=== PATIENT | female | born 2005 | race Two or more races ===

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

== ENCOUNTER 2025-06-19 07:54 | Emergency (ER) | payer OTHER ==
[~2025-06-19] VITALS: Ht 152.4 cm; Wt 41.7 kg
[2025-06-19] MEDS ORDERED: FAMOTIDINE/PF 20 MG/2 ML VIAL IV STA (09:15)
[2025-06-19] MEDS ORDERED: ONDANSETRON HCL 2 MG/ML VIAL IV STA (09:15)
[2025-06-19] MEDS ORDERED: 0.9 % SODIUM CHLORIDE 1,000 ML IV SCH ×2 (09:30)
[2025-06-19] MEDS ORDERED: ONDANSETRON HCL 2 MG/ML VIAL ONE (09:48)
[2025-06-19] MEDS ORDERED: FAMOTIDINE/PF 20 MG/2 ML VIAL ONE (09:48)
[2025-06-19 10:19] LABS: BASO % 0.2 % (0.1-1.2); EOS # 0.02 (0.04-0.54); EOS % 0.1 % (0.7-7.0); LYMPH # 1.08 (1.18-3.74); LYMPH % 6.6 % (19.3-53.1); MEAN PLATELET VOLUME 10.70 fl (9.4-12.4); MONO # 1.10 (0.24-0.82); MONO % 6.7 % (4.7-12.5); NEUT # 14.11 (1.56-6.13); NEUT % 86.0 % (34.0-71.1); RED CELL DISTRIBUTION WIDTH 12.9 % (11.6-14.4)
[2025-06-19 10:52] LABS: COVID-19 AG NEGATIVE (NEGATIVE)
[2025-06-19 10:53] LABS: ALT/SGPT 16 U/L (12-78); AST/SGOT 10 U/L (15-37); BILIRUBIN TOTAL 0.29 mg/dL (0.3-1.2); BUN CREA RATIO 23 (7.0-25.0); CREATININE SERUM 0.66 mg/dL (0.55-1.02); GFR 114.18; GLOBULINA 4.2 G/DL (2.4-3.5); GLUCOSE FASTING 102 mg/dL (65-100); OSMOLALITY SERUM 280 MOSM/KG (275-295)
[2025-06-19 13:40] LABS: URINE APPEARANCE Clear; URINE BILIRRUBIN Negative (NEGATIVE); URINE BLOOD NHT; URINE COLOR Yellow; URINE GLUCOSE Negative (NEGATIVE); URINE KETONE Negative (NEGATIVE); URINE LEUKOCYTE Small; URINE NITRATE Negative; URINE PROTEIN Trace (NEGATIVE); URINE UROBILINOGEN 0.2 E.U./dl
[2025-06-19 13:44] LABS: URINE BACTERIA 947.1 uL (0.0-1933); URINE EPITHELIAL CELLS 30.0 uL (0.0-38.8); URINE RBC 9.4 uL (0.0-20.8); URINE WBC 34.0 uL (0.0-23.2)
[2025-06-19 13:46] LABS: URINE CAST 0.14 uL (0.0-1.40)
[2025-06-19] MEDS ORDERED: CEFTRIAXONE SODIUM 1,000 MG VIAL IV STA (14:19)
[2025-06-19] MEDS ORDERED: CEFTRIAXONE SODIUM 1,000 MG VIAL ONE (14:42)
[2025-06-19] MEDS ORDERED: PEPCID AC20 MG PO (19:45)
== END 2025-06-19 20:00 | disposition home or self-care (01) ==
LOC: ER 07:55 → EMR PED 08:00 → ER 08:00 → EMR PED 20:00
PROVIDERS: Pediatrics
DX: R10.13 Epigastric pain (principal); E86.0 Dehydration; R11.10 Vomiting, unspecified; Z20.822 Contact with and (suspected) exposure to COVID-19